=== PATIENT | male | born 1995 | race Caucasian/White ===

== ENCOUNTER 2017-01-11 14:05 | Emergency (ER) | payer OTHER ==
[2017-01-11] MEDS ORDERED: Ibuprofen TAB* 600 MG PO ONE (16:53)
--- NOTE | 2017-01-11 16:59 | ED ---
Upper Extremity Pain - HPI Summary HPI Summary: 21 male presents to ED with complaints of hitting his right hand against a wall yesterday and today when he woke up it was tender to touch, red/bruised and swollen. Patient denies significant pain with movement, however is tender to touch and with certain movements. No pain with fingers. Took ibuprofen this morning with relief. Small portion of posterior right fifth digit is numb feeling per patient. No other injuries or complaints. hitting hand against wall was accidental. No other complaints. No PMHx other than immune system disorder. Right hand dominant. - History of Current Complaint Chief Complaint: EDExtremityUpper Stated Complaint: RT HAND INJURY Time Seen by Provider: 01/11/17 15:42 Hx Obtained From: Patient Onset/Duration: Started Days Ago - yesterday, Traumatic, Still Present, Worse Since Timing: Constant Severity Initially: Mild Pain Location: Hand - right posterior fifth digit Character: Aching Aggravating Factor(s): Other - touch Alleviating Factor(s): OTC Meds Associated Signs & Symptoms: Positive: Swelling, Redness, Bruising, Numbness/ Tingling. Negative: Weakness Related History: Dominant Hand Right - Allergies/Home Medications Allergies/Adverse Reactions: Allergies Allergy/AdvReac Type Severity Reaction Status Date / Time Sulfa Antibiotics Allergy Hives Verified 11/17/16 07:53 PMH/Surg Hx/FS Hx/Imm Hx Endocrine/Hematology History: Reports: Other Endocrine/Hematological Disorders - immunodeficiency Denies: Hx Diabetes Cardiovascular History: Denies: Hx Hypertension History: Denies: Hx Dialysis, Hx Renal Disease - Immunization History Date of Tetanus Vaccine: UTD Date of Influenza Vaccine: 11/13/15 Infectious Disease History: No Infectious Disease History: Denies: Traveled Outside the [place] in Last 30 Days - Family History Known Family History: Positive: Hypertension - Social History Alcohol Use: Weekly Alcohol Amount: 3 Substance Use Type: Reports: None Smoking Status (MU): Never Smoked Tobacco Review of Systems Constitutional: Negative Cardiovascular: Negative Respiratory: Negative Positive: Arthralgia, Myalgia, Edema - right hand Positive: Bruising - right hand Positive: Numbness - small area of posterior hand however, is still able to feel All Other Systems Reviewed And Are Negative: Yes Physical Exam Triage Information Reviewed: Yes Vital Signs On Initial Exam: Initial Vitals Temp Pulse Resp BP Pulse Ox 99.3 F 72 16 138/72 99 01/11/17 14:23 01/11/17 14:23 01/11/17 14:23 01/11/17 14:23 01/11/17 14:23 Vital Signs Reviewed: Yes Appearance: Positive: Well-Appearing, No Pain Distress, Well-Nourished Skin: Positive: Warm, Skin Color Reflects Adequate Perfusion, Dry, Erythema @ - /ecchymosis over dorsal right ulnar side below fifth digit. no digit involvement. slightly edematous compared to left hand when compared, tender to touch. Negative: Cold, Diaphoretic, Pale Head/Face: Positive: Normal Head/Face Inspection ENT: Positive: Hearing grossly normal Neck: Positive: Supple, Nontender Respiratory/Lung Sounds: Positive: Clear to Auscultation, Breath Sounds Present. Negative: Rales, Rhonchi, Wheezes Cardiovascular: Positive: Normal, RRR, Pulses are Symmetrical in both Upper and Lower Extremities - 2+ radial b/l. Negative: Murmur, Rub Musculoskeletal: Positive: Strength/ROM Intact, Pain @ - on palpation of dorsal ulnar side of right hand, ecchymosis/erythema. slight edema. no sign of open wounds or foreign body, Edema Right - hand as described above, Other - wrist and rest of UE without tenderness/pain. Negative: Limited @, Interruption @, Abnormal @ - no crepitus step off or obvious deformity Neurological: Positive: Normal, Sensory/Motor Intact, Alert, Oriented to Person Place, Time, CN Intact II-III, Reflexes Intact, NV Bundle Intact Distally, Normal Gait Diagnostics - Vital Signs Vital Signs Temp Pulse Resp BP Pulse Ox 01/11/17 14:23 99.3 F 72 16 138/72 99 - Laboratory Lab Statement: Any lab studies that have been ordered have been reviewed, and results considered in the medical decision making process. - Radiology right hand Xray Interpretation: No Acute Changes - Normal articular alignment. Negative for fracture. Mild soft tissue swelling most prominent at the ulnar aspect of the hand and fifth finger. No conspicuous foreign body or subcutaneous emphysema. Radiology Interpretation Completed By: Radiologist Course/Dx - Course Course Of Treatment: given ibuprofen to help with pain, since it helped this morning at last dose. rest, ice. xray obtained to rule out fracture and negative. applied michael bandage. RICE and ibuprofen at home. Appears to be suffering from a contusion. No concern for other etiology at this time. Aware of worsening signs and symptoms to watch out for. Follow up. - Diagnoses Differential Diagnosis/HQI/PQRI: Positive: Contusion, Fracture (Closed), Strain , Sprain Provider Diagnoses: Contusion of right hand Discharge - Discharge Plan Condition: Stable Disposition: HOME Patient Education Materials: Contusion in Adults (ED) Referrals: [facility] - Taco JEFFRIES [Primary Care Provider] - Additional Instructions: Continue ibuprofen as needed for pain and inflammation. Rest, apply ice and michael bandage for compression. Refrain from use until improves. Any new or worsening symptoms as discussed, such as worsening redness, streaking , swelling please seek medical attention immediately. Follow up with PCP.
--- NOTE | 2017-01-11 17:27 | RAD ---
Indication: RIGHT hand fifth digit pain following injury. Comparison: No relevant prior exams available on the [facility] [place] [place]. Technique: AP and lateral views RIGHT hand. REPORT AND IMPRESSION: Normal articular alignment. Negative for fracture. Mild soft tissue swelling most prominent at the ulnar aspect of the hand and fifth finger. No conspicuous foreign body or subcutaneous emphysema.
[2017-01-11 17:53] VITALS: BP 115/70
== END 2017-01-11 17:56 | disposition home or self-care (01) ==
LOC: ED 14:05
DX: S60.221A Contusion of right hand, initial encounter (principal); X58.XXXA Exposure to other specified factors, initial encounter; Y93.9 Activity, unspecified; Y92.9 Unspecified place or not applicable
CPT/HCPCS: 99282; A9270-GY